=== PATIENT | female | born 1985 | race Caucasian/White ===

== ENCOUNTER 2024-04-03 16:59 | Emergency (ER) | payer OTHER ==
[~2024-04-03] VITALS: Ht 175.3 cm; Wt 75.7 kg
[2024-04-03 17:02] VITALS: BP_SYST 100; PULSE 81; RESP 18; TEMP 98.8; O2SAT 98
[2024-04-03] MEDS ORDERED: SULF1TAB48 PO (17:37)
[2024-04-03] MEDS ORDERED: PRED20TA PO (17:37)
[2024-04-03] MEDS: DEXAMETHASONE SOD PHOSPHATE 4 MG/ML VIAL IM ONE (17:54)
[2024-04-03 18:20] VITALS: BP_SYST 100; PULSE 81; RESP 18; TEMP 98.8; O2SAT 98
== END 2024-04-03 18:20 | disposition home or self-care (01) ==
LOC: SED 16:59
DX: L50.9 Urticaria, unspecified (principal); Z79.899 Other long term (current) drug therapy; Z79.2 Long term (current) use of antibiotics
CPT/HCPCS: 99283; 96372; J1100

== ENCOUNTER 2024-05-18 00:31 | Emergency (ER) | payer OTHER ==
[~2024-05-18] VITALS: Ht 175.3 cm; Wt 77.1 kg
[~2024-05-18 00:31] MED LIST: PRED20TA PO; SULF1TAB48 PO
[2024-05-18 00:43] VITALS: BP_SYST 108; PULSE 87; RESP 18; TEMP 98.6; O2SAT 100
[2024-05-18] MEDS: FAMOTIDINE 20 MG TABLET PO ONE (02:30)
[2024-05-18] MEDS: predniSONE 20 MG TABLET PO ONE (02:31)
[2024-05-18] MEDS: DIPHENHYDRAMINE INJ 50 MG/ML VIAL IM ONE ×2 (02:32→05:24)
[2024-05-18] MEDS ORDERED: EPINEPHrine JECT 0.1 MG/ML SYR ONE (03:44)
[2024-05-18] MEDS ORDERED: EPINEPHRINE HCL/PF 1 MG/ML AMP ONE (03:46)
[2024-05-18] MEDS: EPINEPHrine HCL 1 MG/ML VIAL IM ONE (03:55)
[2024-05-18] MEDS ORDERED: EPIN0.3P3 IM (04:51)
[2024-05-18 05:25] VITALS: BP_SYST 102; PULSE 76; RESP 18; TEMP 98.6; O2SAT 100
== END 2024-05-18 05:25 | disposition home or self-care (01) ==
LOC: SED 00:31
DX: L50.9 Urticaria, unspecified (principal); T78.49XA Other allergy, initial encounter; Z79.899 Other long term (current) drug therapy; X58.XXXA Exposure to other specified factors, initial encounter
CPT/HCPCS: 99284; 96372; J7512; J1200; J0171